=== PATIENT | male | born 2000 | race Caucasian/White ===

== ENCOUNTER 2021-10-25 17:58 | Emergency (ER) | payer OTHER ==
[~2021-10-25] VITALS: Ht 168 cm; Wt 76.2 kg
--- NOTE | 2021-10-25 19:48 | ED GU-Male ---
General Chief Complaint: - Reproductive Stated Complaint: PELVIC PAIN Nursing Triage Note: C/O LOWER PELVIC ACHING PAIN WITH INTERMITTANT SHARP RIGHT TESTICULAR PAIN WITH ERECTILE DYSFUNCTION X3 WEEKS. REPORTS BEING SEEN IN [facility] FOR SAME LAST WEEK AND TESTED FOR STI (NEGATIVE). Source: patient Exam Limitations: no limitations History of Present Illness Date Seen by Provider: Oct 25, 2021 Time Seen by Provider: 19:43 Initial Comments Patient is a 21-year-old male presents ED with pelvic pain. Pelvic pain over the past 3 to 4 weeks. Patient states he had a vasectomy last December. Had similar type pain that resolved. Similar pain from bilateral pelvic area radiating into his testicle into his posterior pelvic. Denies of any pain with urination frequent urination, penile discharge, vomiting, diarrhea fever, ch ills. Patient had a vasectomy at [facility]. Patient went to urgent care last week had negative urinalysis with STDs. Denies of any scrotum pain, scrotum swelling or current testicle pain. Denies fever, chills, nausea vomiting, diarrhea Allergies and Home Medications Allergies Coded Allergies: tramadol (Verified Allergy, Unknown, 10/25/21) Uncoded Allergies: IV DYE (Allergy, Unknown, 10/25/21) Patient Home Medication List Home Medication List Reviewed: Yes No Active Prescriptions or Reported Meds Review of Systems Review of Systems Constitutional: No see HPI, No chills, No diaphoresis EENTM: No ear discharge, No mouth pain, No mouth swelling Respiratory: No cough, No dyspnea on exertion, No orthopnea, No short of breath Cardiovascular: No chest pain Gastrointestinal: No abdominal pain, No diarrhea, No nausea, No vomiting Genitourinary: denies burning, denies frequency, denies flank pain; pain Musculoskeletal: No no symptoms reported, No back pain, No joint pain, No m uscle pain, No muscle stiffness Skin: No change in color, No change in hair/nails Past Wxefmal-Snpknj-Xaovxk Hx Patient Social History Tobacco Use?: Yes Substance use?: No Alcohol Use?: Yes Alcohol Frequency: Once in a while Pt feels they are or have been: No Past Medical History Surgery/Hospitalization HX: VASECTOMY, T/A Physical Exam Vital Signs Vital Signs - First Documented 10/25/21 19:16 Temp 36.5 Pulse 101 Resp 16 B/P (MAP) 131/91 (104) Pulse Ox 97 O2 Delivery Room Air Capillary Refill : Less Than 3 Seconds Height, Weight, BMI Height: '" Weight: lbs. oz. kg; 26.00 BMI Method: General Appearance: WD/WN, no apparent distress HEENT: PERRL/EOMI, normal ENT inspection, TMs normal, pharynx normal Neck: non-tender, full range of motion, supple Cardiovascular: regular rate, rhythm, no edema, no gallop, no JVD, no murmur Respiratory: chest non-tender, lungs clear, normal breath sounds, no respiratory distress, no accessory muscle use Gastrointestinal: normal bowel sounds, non tender, soft, no organomegaly Male: normal genitalia, no hernia Genital/Rectal: normal genital exam Back: normal inspection, no CVA tenderness Extremities: normal range of motion, non-tender Progress/Results/Core Measures Suspected Sepsis SIRS Temperature: Pulse: 101 Respiratory Rate: 16 Blood Pressure 131 /91 Mean: 104 Results/Orders Lab Results Laboratory Tests Test 10/25/21 19:38 Range/Units Urine Color YELLOW Urine Clarity CLEAR Urine pH 6.0 5-9 Urine Specific [place] 1.025 H 1.016-1.022 Urine Protein NEGATIVE NEGATIVE Urine Glucose (UA) NEGATIVE NEGATIVE Urine Ketones NEGATIVE NEGATIVE Urine Nitrite NEGATIVE NEGATIVE Urine Bilirubin NEGATIVE NEGATIVE Urine Urobilinogen 0.2 < = 1.0 MG/DL Urine Leukocyte Esterase NEGATIVE NEGATIVE Urine RBC (Auto) NEGATIVE NEGATIVE Urine RBC NONE /HPF Urine WBC RARE /HPF Urine Crystals PRESENT H /LPF Urine Amorphous Sediment RARE ABDOUL URATES H /LPF Urine Bacteria NEGATIVE /HPF Urine Casts NONE /LPF Urine Mucus SMALL H /LPF Urine Culture Indicated NO My Orders Orders - SALONI MUELLER Ua Culture If Indicated (10/25/21 19:20) Vital Signs/I&O 10/25/21 10/25/21 19:16 20:25 Temp 36.5 36.4 Pulse 101 89 Resp 16 16 B/P (MAP) 131/91 (104) 124/89 Pulse Ox 97 98 O2 Delivery Room Air Room Air Capillary Refill : Less Than 3 Seconds Blood Pressure Mean: 104 Departure Communication (Admissions) Normal genital exam. No palpable abscess, erythema, swelling. No lymphadenopathy. No evidence of inguinal hernia. Reports pain over the past 3 weeks. . Pain shoots from the pelvic area into his groin and into his posterior pelvic. Similar type pain after vasectomy. Exam otherwise benign. Urinalysis negative for infection. Recently checked for STDs and which was negative at urgent. Due to the length of symptoms I do not feel that patient has a acute testicle torsion. No tenderness to the epididymis or testicle suggesting orchitis or epididymitis. Negative urinalysis for infection. Patient is concerned for prostate cancer. Unlikely at his age. Provided outpatient follow-up. He denies of any difficulty urinating, weakened stream. No right lower or left lower quadrant tenderness. Ordered outpatient testicle ultrasound. Provided outpatient follow-up with [facility] to establish care with primary care physician. If worsening symptoms return back to ED for further evaluation. Patient will need to follow-up with his urologist at [place]. No acute abdomen Impression Primary Impression: Pelvic pain Disposition: 01 HOME, SELF-CARE Condition: Stable Departure-Patient Inst. Decision time for Depature: 20:18 Referrals: [facility] [place] PHYSICIAN (PCP) Primary Care Physician Patient Instructions: Pelvic Pain ED Scripts No Active Prescriptions or Reported Meds SALONI MUELLER Oct 25, 2021 19:48
[2021-10-25 20:07] LABS: BILIRUBIN,URINE NEGATIVE (NEGATIVE); CLARITY,URINE CLEAR; COLOR,URINE YELLOW; GLUCOSE, URINE (UA) NEGATIVE (NEGATIVE); KETONES,URINE NEGATIVE (NEGATIVE); LEUKOCYTE ESTERASE ,URINE NEGATIVE (NEGATIVE); NITRITE,URINE NEGATIVE (NEGATIVE); PROTEIN,URINE NEGATIVE (NEGATIVE)
[2021-10-25 20:13] LABS: AMORPHOUS SEDIMENT,UR RARE AMOR URATES /LPF; BACTERIA,URINE NEGATIVE /HPF; WBC,URINE RARE /HPF
[2021-10-25 20:25] VITALS: BP 124/89
== END 2021-10-25 20:25 | disposition home or self-care (01) ==
LOC: ER 18:05
DX: R10.2 Pelvic and perineal pain (principal); Z72.0 Tobacco use
CPT/HCPCS: 81000; 99282